=== PATIENT | male | born 1965 | race African-American/Black ===

== ENCOUNTER 2017-04-01 13:55 | Emergency (ER) | payer SELFPAY ==
[~2017-04-01] VITALS: Ht 165.1 cm; Wt 74.0 kg
[2017-04-01 13:55] VITALS: BP 156/103
[2017-04-01] MEDS ORDERED: KETOROLAC 30 MG/1 ML ONE (14:23)
[2017-04-01] MEDS ORDERED: DIAZEPAM 5 MG TABLET ONE (14:23)
[2017-04-01] MEDS ORDERED: DIAZEPAM 5 MG TABLET PO ONE (14:30)
[2017-04-01] MEDS ORDERED: KETOROLAC 30 MG/1 ML IM ONE (14:30)
== END 2017-04-01 16:23 | disposition home or self-care (01) ==
LOC: ED 15:46
DX: M54.42 Lumbago with sciatica, left side (principal)
CPT/HCPCS: 72110; 96372; 99284; J1885; J7512

== ENCOUNTER 2017-04-14 10:06 | Emergency (ER) | payer OTHER ==
[~2017-04-14] VITALS: Ht 165.1 cm; Wt 74.6 kg
[2017-04-14] MEDS ORDERED: DIAZEPAM 5 MG TABLET ONE (11:26)
[2017-04-14] MEDS ORDERED: HYDROmorphone 1 MG/ML, 1ML ONE (11:26)
[2017-04-14] MEDS ORDERED: KETOROLAC 30 MG/1 ML ONE (11:27)
[2017-04-14] MEDS ORDERED: KETOROLAC 30 MG/1 ML IM ONE (11:30)
[2017-04-14] MEDS ORDERED: HYDROmorphone 1 MG/ML, 1ML IM ONE (11:30)
[2017-04-14] MEDS ORDERED: DIAZEPAM 5 MG TABLET PO ONE (11:30)
[2017-04-14 11:48] LABS: BLOOD UREA NITROGEN 8 mg/dL (7-18)
[2017-04-14 11:50] LABS: HEMATOCRIT 47.3 % (39.2-51.8); HEMOGLOBIN 15.3 g/dL (13.7-18.0); WHITE BLOOD COUNT 10.2 x10^3/uL (3.4-10)
[2017-04-14 12:34] VITALS: BP 150/99
== END 2017-04-14 12:58 | disposition home or self-care (01) ==
LOC: ED 10:49
DX: M54.42 Lumbago with sciatica, left side (principal)
CPT/HCPCS: 36415; 80048; 81003; 82040; 85025; 96372; 99284; J1170; J1885

== ENCOUNTER 2017-06-11 15:01 | Emergency (ER) | payer SELFPAY ==
[~2017-06-11] VITALS: Ht 165.1 cm; Wt 71.0 kg
[2017-06-11] MEDS ORDERED: ONDANSETRON 2MG/ML, 2ML IVPush ONE (16:00)
[2017-06-11] MEDS ORDERED: SODIUM CHLORIDE FLUSH 10ML SYR IVF ONE (16:00)
[2017-06-11] MEDS ORDERED: FAMOTIDINE 20 MG/2 ML IVP ONE (16:00)
[2017-06-11] MEDS ORDERED: SODIUM CHLORIDE 0.9% 1,000ML IVBOLUS ONE (16:00)
[2017-06-11] MEDS ORDERED: ONDANSETRON 2MG/ML, 2ML ONE (16:30)
[2017-06-11] MEDS ORDERED: FAMOTIDINE 20 MG/2 ML ONE (16:30)
[2017-06-11 16:31] LABS: RAPID INFLUENZA A POSITIVE (Negative); RAPID INFLUENZA B Negative (Negative)
[2017-06-11 16:33] LABS: ASPARTATE AMINO TRANSFERASE 28 U/L (15-37); BLOOD UREA NITROGEN 18 mg/dL (7-18); HEMATOCRIT 49.3 % (39.2-51.8); HEMOGLOBIN 16.3 g/dL (13.7-18.0); WHITE BLOOD COUNT 5.2 x10^3/uL (3.4-10)
[2017-06-11 18:17] LABS: SPERM-FLAG NOT PRESENT; XTAL-FLAG NOT PRESENT; YLC-FLAG NOT PRESENT
[2017-06-11 18:20] VITALS: BP 160/103
== END 2017-06-11 18:23 | disposition home or self-care (01) ==
LOC: ED 17:11
DX: K52.9 Noninfective gastroenteritis and colitis, unspecified (principal); E86.0 Dehydration; J11.1 Influenza due to unidentified influenza virus with other respiratory manifestations; I10 Essential (primary) hypertension; K21.9 Gastro-esophageal reflux disease without esophagitis
CPT/HCPCS: 36415; 74022; 80053; 81001; 83690; 85025; 87086; 87400; 93005; 96361; 96374; 96375; 99285; J2405; J7030; S0028